=== PATIENT | female | born 1980 | race Two or more races ===

== ENCOUNTER 2018-07-28 23:55 | Emergency (ER) | payer SELFPAY ==
[~2018-07-28] VITALS: Ht 172.7 cm; Wt 80.0 kg
[2018-07-29] MEDS ORDERED: LORazepam 1 MG TABLET PO ONE (00:15)
[2018-07-29 02:05] VITALS: BP 121/74
== END 2018-07-29 02:07 | disposition home or self-care (01) ==
LOC: EMS 23:55
DX: F41.9 Anxiety disorder, unspecified (principal); R20.2 Paresthesia of skin
CPT/HCPCS: 93005